=== PATIENT | female | born 1965 | race Caucasian/White ===

== ENCOUNTER 2019-03-10 15:19 | Emergency (ER) | payer OTHER ==
[~2019-03-10] VITALS: Ht 170.2 cm; Wt 92.2 kg
[2019-03-10] MEDS ORDERED: ACETAMINOPHEN 325 MG TABLET ONE (15:44)
[2019-03-10] MEDS ORDERED: ACETAMINOPHEN 325 MG TABLET PO ONE (16:00)
[2019-03-10 17:27] VITALS: BP 132/65
== END 2019-03-10 17:31 | disposition home or self-care (01) ==
LOC: ED 17:25
DX: S30.0XXA Contusion of lower back and pelvis, initial encounter (principal); G89.11 Acute pain due to trauma; V03.09XA Pedestrian with other conveyance injured in collision with car, pick-up truck or van in nontraffic accident, initial encounter; Y93.01 Activity, walking, marching and hiking; Y92.481 Parking lot as the place of occurrence of the external cause; Y99.8 Other external cause status
CPT/HCPCS: 72110; 72220; 99283

== ENCOUNTER 2019-12-21 13:22 | Outpatient (CLI) | payer OTHER ==
[2019-12-21] MEDS ORDERED: GADOTERATE 5 MMOL/10 ML VIAL ONE (14:00)
[2019-12-21] MEDS ORDERED: OMNIPAQUE 300 MG/ML, 10ML VIAL ONE (14:00)
[2019-12-21] MEDS ORDERED: LIDOCAINE-MPF 1%, 5ML ONE (14:07)
== END 2019-12-21 23:59 | disposition home or self-care (01) ==
LOC: RAD 13:22
PROVIDERS: ATTEND Orthopaedic Surgery
DX: M25.531 Pain in right wrist (principal); S63.391A Traumatic rupture of other ligament of right wrist, initial encounter; X58.XXXA Exposure to other specified factors, initial encounter; Y93.89 Activity, other specified; Y92.89 Other specified places as the place of occurrence of the external cause; Y99.8 Other external cause status
CPT/HCPCS: 25246; 73115; 73222; A9575; Q9967